=== PATIENT | male | born 1975 | race Caucasian/White ===

== ENCOUNTER 2018-09-25 19:32 | Emergency (ER) | payer MEDICAID ==
[~2018-09-25] VITALS: Ht 182.9 cm; Wt 85.0 kg
[2018-09-25 19:36] VITALS: BP 129/65
[2018-09-25] MEDS ORDERED: ALBU8.5H8 IH (20:30)
[2018-09-25] MEDS ORDERED: AZIT250T PO (20:30)
== END 2018-09-25 20:40 | disposition home or self-care (01) ==
LOC: ER 19:33
DX: J20.9 Acute bronchitis, unspecified (principal); L03.211 Cellulitis of face; R51 Headache
CPT/HCPCS: 99283